=== PATIENT | male | born 1990 | race Caucasian/White ===

== ENCOUNTER 2024-02-26 10:17 | Emergency (ER) | payer OTHER ==
[2024-02-26] MEDS ORDERED: Dexamethasone 10 MG/ML VIAL ONE (10:55)
[2024-02-26] MEDS ORDERED: Ketorolac Tromethamine 30 MG (1 mL) VIAL ONE (10:55)
== END 2024-02-26 11:51 | disposition home or self-care (01) ==
LOC: MADERS 10:17
DX: M54.50 Low back pain, unspecified (principal); X50.0XXA Overexertion from strenuous movement or load, initial encounter; Y93.89 Activity, other specified; Y92.009 Unspecified place in unspecified non-institutional (private) residence as the place of occurrence of the external cause
CPT/HCPCS: 96372; 99283; J1100; J1885